=== PATIENT | female | born 1985 | race Caucasian/White ===

== ENCOUNTER 2018-10-19 17:05 | Emergency (ER) | payer BC ==
--- NOTE | 2018-10-19 18:19 | EDM.PDOC ---
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 She states her last mesh a period was September 03, 2018 and did have 2 positive home test. She states all using the bathroom she noted some blood in her underwear and had a moderate amount of blood in the toilet, saw large clot that appeared to "have tissue". She has decreased on the amount of bleedin, presented to the emergency room as she is concerned of miscarriage. She denies any fever, chills, chest pain, shortness of breath or cough. Denies any abdominal pain, nausea, vomiting, diarrhea, constipation or dysuria. She has been eating and drinking appropriately. , P:0. She does have a follow-up appointment with Luciana Huitron for her initial OB appointment later this month. Review of systems: As per history of present illness and below otherwise all systems reviewed and negative. Past medical history: As per history of present illness and as reviewed below otherwise noncontributory. Surgical history: As per history of present illness and as reviewed below otherwise noncontributory. Social history: See social history for further information Family history: As per history of present illness and as reviewed below otherwise noncontributory. Physical exam: General: Well-developed and well-nourished 33-year-old female. Alert and oriented. Nontoxic appearing and in no acute distress. HEENT: Atraumatic, normocephalic, pupils equal and reactive bilaterally, negative for conjunctival pallor or scleral icterus, mucous membranes moist, TMs normal bilaterally, throat clear, neck supple, nontender, trachea midline. No drooling or trismus noted. No meningeal signs. No hot potato voice noted. Lungs: Clear to auscultation, breath sounds equal bilaterally, chest nontender. Heart: S1S2, regular rate and rhythm without overt murmur Abdomen: Soft, nondistended, nontender. Negative for masses or hepatosplenomegaly. Negative for costovertebral tenderness. Pelvis: Stable nontender. Genitourinary: This was done with a manager fast food at the bedside and consented the patient. She does have moderate amount of blood in the vaginal canal, cervical os is closed no tenderness with speculum insertion. No adnexal masses noted. Rectal: Deferred. Skin: Intact, warm, dry. No lesions or rashes noted. Extremities: Atraumatic, negative for cords or calf pain. Neurovascular unremarkable. Neuro: Awake, alert, oriented. Cranial nerves II through XII unremarkable. Cerebellum unremarkable. Motor and sensory unremarkable throughout. Exam nonfocal. Notes: Ultrasound shows no findings for intrauterine . There is no intrauterine gestational sac present. Pelvic exam revealed that she did have a moderate amount of blood in the vaginal canal, cervical os is closed. Patient tolerated well. Likely patient had miscarriage while at home and she stated states she had a large tissue like clot that she saw in the toilet. Quantitative hCG is 433. Lab work is unremarkable with the exception that she does have a urinary tract infection. This information was shared with the patient. I will order for repeat quantitative hCG with these results going to Luciana Huitron. I do want her to follow up with her on Sunday as I do suspect a miscarriage. Diagnostics: CBC, CMP, AB/SHANNA, UA, urine , quantitative hCG, Transvaginal US Therapeutics: None Prescription: Macrobid Impression: UTI Threatened Miscarriage Plan: 1. Pelvic rest until cleared by the LOCKSTITCH SLEEVE SETTER. Please avoid tampons, sex, etc... 2. Please follow-up with Luciana Yanez on Sunday. Repeat your quantitative hCG any time on Sunday. 3. Tylenol and/or ibuprofen as needed for pain management. 4. Return to the ED as needed and as discussed. Definitive disposition and diagnosis as appropriate pending reevaluation and review of above. 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 ED EXAM - Physical Exam Exam: See Below (See dictation) Course - Vital Signs Last Recorded V/S: Last Vital Signs Temp 98.1 F 10/19/18 17:48 Pulse 81 10/19/18 17:48 Resp 18 10/19/18 17:48 BP 121/71 10/19/18 17:48 Pulse Ox 99 10/19/18 17:48 - Orders/Labs/Meds Orders: Active Orders 24 hr Category Date Time Status CULTURE URINE [RM] Stat Lab 10/19/18 18:14 Received Labs: Laboratory Tests 10/19/18 10/19/18 10/19/18 Range/Units 18:10 18:10 18:10 WBC 7.91 (4.0-11.0) K/uL RBC 4.38 (4.30-5.90) M/uL Hgb 13.5 (12.0-16.0) g/dL Hct 38.7 (36.0-46.0) % MCV 88.4 (80.0-98.0) fL MCH 30.8 (27.0-32.0) pg MCHC 34.9 (31.0-37.0) g/dL RDW Std Deviation 41.3 (28.0-62.0) fl RDW Coeff of Jenny 13 (11.0-15.0) % Plt Count 268 (150-400) K/uL MPV 11.10 (7.40-12.00) fL Neut % (Auto) 67.6 (48.0-80.0) % Lymph % (Auto) 25.9 (16.0-40.0) % [place] % (Auto) 5.8 (0.0-15.0) % Eos % (Auto) 0.4 (0.0-7.0) % Baso % (Auto) 0.3 (0.0-1.5) % Neut # (Auto) 5.4 (1.4-5.7) K/uL Lymph # (Auto) 2.1 (0.6-2.4) K/uL [place] # (Auto) 0.5 (0.0-0.8) K/uL Eos # (Auto) 0.0 (0.0-0.7) K/uL Baso # (Auto) 0.0 (0.0-0.1) K/uL Nucleated RBC % 0.0 /100WBC Nucleated RBCs # 0 K/uL Sodium 141 (136-145) mmol/L Potassium 4.1 (3.5-5.1) mmol/L Chloride 106 (98-107) mmol/L Carbon Dioxide 25.5 (21.0-32.0) mmol/L BUN 14 (7.0-18.0) mg/dL Creatinine 0.6 (0.6-1.0) mg/dL Est Cr Clr Drug Dosing 121.13 mL/min Estimated GFR (MDRD) > 60.0 ml/min Glucose 103 (74-106) mg/dL Calcium 9.7 (8.5-10.1) mg/dL Total Bilirubin 0.3 (0.2-1.0) mg/dL AST 8 L (15-37) IU/L ALT 9 L (14-63) IU/L Alkaline Phosphatase 44 L (46-116) U/L Total Protein 8.3 H (6.4-8.2) g/dL Albumin 4.1 (3.4-5.0) g/dL Globulin 4.2 H (2.6-4.0) g/dL Albumin/Globulin Ratio 1.0 (0.9-1.6) HCG, Quant 433.0 mIU/mL Urine Color Urine Appearance Urine pH (5.0-8.0) Ur Specific Hastings (1.001-1.035) Urine Protein (NEGATIVE) mg/dL Urine Glucose (UA) (NEGATIVE) mg/dL Urine Ketones (NEGATIVE) mg/dL Urine Occult Blood (NEGATIVE) Urine Nitrite (NEGATIVE) Urine Bilirubin (NEGATIVE) Urine Urobilinogen (<2.0) EU/dL Ur Leukocyte Esterase (NEGATIVE) Urine RBC (0-2/HPF) Urine WBC (0-5/HPF) Ur Epithelial Cells (NONE-FEW) Urine Bacteria (NEGATIVE) Urine HCG, Qual (NEGATIVE) Blood Type A POSITIVE 10/19/18 10/19/18 Range/Units 18:14 18:14 WBC (4.0-11.0) K/uL RBC (4.30-5.90) M/uL Hgb (12.0-16.0) g/dL Hct (36.0-46.0) % MCV (80.0-98.0) fL MCH (27.0-32.0) pg MCHC (31.0-37.0) g/dL RDW Std Deviation (28.0-62.0) fl RDW Coeff of Jenny (11.0-15.0) % Plt Count (150-400) K/uL MPV (7.40-12.00) fL Neut % (Auto) (48.0-80.0) % Lymph % (Auto) (16.0-40.0) % [place] % (Auto) (0.0-15.0) % Eos % (Auto) (0.0-7.0) % Baso % (Auto) (0.0-1.5) % Neut # (Auto) (1.4-5.7) K/uL Lymph # (Auto) (0.6-2.4) K/uL [place] # (Auto) (0.0-0.8) K/uL Eos # (Auto) (0.0-0.7) K/uL Baso # (Auto) (0.0-0.1) K/uL Nucleated RBC % /100WBC Nucleated RBCs # K/uL Sodium (136-145) mmol/L Potassium (3.5-5.1) mmol/L Chloride (98-107) mmol/L Carbon Dioxide (21.0-32.0) mmol/L BUN (7.0-18.0) mg/dL Creatinine (0.6-1.0) mg/dL Est Cr Clr Drug Dosing mL/min Estimated GFR (MDRD) ml/min Glucose (74-106) mg/dL Calcium (8.5-10.1) mg/dL Total Bilirubin (0.2-1.0) mg/dL AST (15-37) IU/L ALT (14-63) IU/L Alkaline Phosphatase (46-116) U/L Total Protein (6.4-8.2) g/dL Albumin (3.4-5.0) g/dL Globulin (2.6-4.0) g/dL Albumin/Globulin Ratio (0.9-1.6) HCG, Quant mIU/mL Urine Color YELLOW Urine Appearance CLEAR Urine pH 8.0 (5.0-8.0) Ur Specific [place] 1.010 (1.001-1.035) Urine Protein NEGATIVE (NEGATIVE) mg/dL Urine Glucose (UA) NEGATIVE (NEGATIVE) mg/dL Urine Ketones NEGATIVE (NEGATIVE) mg/dL Urine Occult Blood MODERATE H (NEGATIVE) Urine Nitrite NEGATIVE (NEGATIVE) Urine Bilirubin NEGATIVE (NEGATIVE) Urine Urobilinogen 0.2 (<2.0) EU/dL Ur Leukocyte Esterase TRACE H (NEGATIVE) Urine RBC 0-4 (0-2/HPF) Urine WBC 2-4 (0-5/HPF) Ur Epithelial Cells MODERATE (NONE-FEW) Urine Bacteria 1+ H (NEGATIVE) Urine HCG, Qual POSITIVE (NEGATIVE) Blood Type Departure - Departure Time of Disposition: 19:28 Disposition: Home, Self-Care 01 Clinical Impression: Threatened Urinary tract infection Qualifiers: Urinary tract infection type: acute cystitis Hematuria presence: with hematuria Qualified Code(s): N30.01 - Acute cystitis with hematuria - Discharge Information Prescriptions: Nitrofurantoin Monohyd/M-Cryst [Macrobid 100 mg Capsule] 100 mg PO BID 7 Days # 14 capsule Instructions: Urinary Tract Infection, Adult, [id number], Threatened Miscarriage, [id number] Referrals: PCP,None [Primary Care Provider] - Forms: ED Department Discharge Additional Instructions: The following information is given to patients seen in the emergency department who are being discharged to home. This information is to outline your options for follow-up care. We provide all patients seen in our emergency department with a follow-up referral. The need for follow-up, as well as the timing and circumstances, are variable depending upon the specifics of your emergency department visit. If you don't have a primary care physician on staff, we will provide you with a referral. We always advise you to contact your personal physician following an emergency department visit to inform them of the circumstance of the visit and for follow-up with them and/or the need for any referrals to a consulting specialist. The emergency department will also refer you to a specialist when appropriate. This referral assures that you have the opportunity for follow-up care with a specialist. All of these measure are taken in an effort to provide you with optimal care, which includes your follow-up. Under all circumstances we always encourage you to contact your private physician who remains a resource for coordinating your care. When calling for follow-up care, please make the office aware that this follow-up is from your recent emergency room visit. If for any reason you are refused follow-up, please contact the [facility] Emergency Department at and asked to speak to the emergency department charge nurse. [facility] Primary Care: Women's [facility] [address] [place] [id number] [place] [address] 1. Pelvic rest until cleared by the LOCKSTITCH SLEEVE SETTER. Please avoid tampons, sex, etc... 2. Please follow-up with Luciana Yanez on Sunday. Repeat your quantitative hCG any time on Sunday. 3. Tylenol and/or ibuprofen as needed for pain management. 4. Return to the ED as needed and as discussed. - My Orders Last 24 Hours: My Active Orders 10/19/18 18:14 CULTURE URINE [RM] Stat - Assessment/Plan Last 24 Hours: My Active Orders 10/19/18 18:14 CULTURE URINE [RM] Stat
[2018-10-19 18:44] LABS: CHLORIDE,CL 106 mmol/L (98-107); SODIUM,NA 141 mmol/L (136-145)
--- NOTE | 2018-10-19 19:25 | US ---
CLINICAL HISTORY: History bleeding. Positive urinary test. TECHNIQUE: Real time, fernández scale images were acquired of the pelvis using a transabdominal and transvaginal approach. Color Doppler analysis was performed of the ovaries. FINDINGS: Uterus measures 8.6 x 4.2 x 5.4 cm. Thickened heterogeneous endometrium. Mobile hyperechoic material within the endometrium which may represent blood products. No intrauterine gestational sac or pole seen. 3 centimeter x 3 centimeter uterine fibroid. Ovaries appear unremarkable. No adnexal mass. Trace amount of free fluid. IMPRESSION: 1. No findings for intrauterine . No intrauterine gestational sac present. Thickened heterogeneous endometrium with mobile hyperechoic material which probably reflects blood products. Findings probably reflect SAB. Early intrauterine or ectopic not completely excluded. Recommend correlation with HCG levels and follow-up. Dictated by Diandra Saxena MD @ Oct 19 2018 7:20PM Signed by Dr. Diandra Saxena @ Oct 19 2018 7:24PM
== END 2018-10-19 19:54 | disposition home or self-care (01) ==
LOC: MW.ED 17:05
DX: O20.0 Threatened abortion (principal); O23.41 Unspecified infection of urinary tract in pregnancy, first trimester; Z3A.00 Weeks of gestation of pregnancy not specified
CPT/HCPCS: 36415; 76801; 76801-26; 80053; 81001; 81025; 84702; 85025; 86900; 86901; 87086; 99284-25

== ENCOUNTER 2020-12-18 15:56 | Emergency (ER) | payer BC ==
[2020-12-18] MEDS ORDERED: Sodium Chloride 0.9% 1,000 ML IV ONE (16:35)
--- NOTE | 2020-12-18 16:40 | EDM.PDOC ---
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 She states she is 16 weeks with confirmed intrauterine and follows with Dr. Lake at [facility]. Patient states that she has had normal care thus far without complications. Patient states that last night she began having what she describes as "menstrual cramping "sensations of her lower abdomen that is on both sides and radiates to her low back bilaterally. Patient denies any change in vaginal discharge or vaginal bleeding. Patient states that throughout the day, this has continued. Patient states that her lower abdomen will tighten when this happens and then release. Patient states she was concerned so came to the emergency room for further evaluation. Patient denies any trauma or pain or any other associated symptoms. Patient denies fever, chills, chest pain, shortness of breath, or cough. Denies headache, neck stiff ness, change in vision, syncope, or near syncope. Denies nausea, vomiting, abdominal pain, diarrhea, constipation, or dysuria. Has not noted any blood in urine or stool. Patient has been eating and drinking appropriately. Review of systems: As per history of present illness and below otherwise all systems reviewed and negative. Past medical history: As per history of present illness and as reviewed below otherwise noncontributory. Surgical history: As per history of present illness and as reviewed below otherwise noncontributory. Social history: See social history for further information Family history: As per history of present illness and as reviewed below otherwise noncontributory. Physical exam: General: Patient is alert, oriented, and in no acute distress. Patient sitting comfortably on exam table. Vital stable and reviewed by me. HEENT: Atraumatic, normocephalic, pupils equal and reactive bilaterally, negative for conjunctival pallor or scleral icterus, mucous membranes moist, TMs normal bilaterally, throat clear, neck supple, nontender, trachea midline. No drooling or trismus noted. No meningeal signs. No hot potato voice noted. Lungs: Clear to auscultation, breath sounds equal bilaterally, chest nontender. Heart: S1S2, regular rate and rhythm without overt murmur Abdomen: Soft, nondistended, nontender. Negative for masses or hepatosplenomegaly. Negative for costovertebral tenderness. Pelvis: Stable nontender. Genitourinary: [employer] at bedside Fátima Charles. External genitalia is grossly unremarkable. There is a small to moderate amount of white vaginal discharge in the vaginal vault. The cervical os is closed and the cervix is firm. Uterus is nontender. Rectal: Deferred. Skin: Intact, warm, dry. No lesions or rashes noted. Extremities: Atraumatic, negative for cords or calf pain. Neurovascular unremarkable. Neuro: Awake, alert, oriented. Cranial nerves II through XII unremarkable. Cerebellum unremarkable. Motor and sensory unremarkable throughout. Exam nonf ocal. Notes: On initial exam, patient is well-appearing and vitally stable. Negative for abdominal pain to palpation on exam and negative CVA tenderness. Cervical os is closed on exam. Patient does not have any vaginal bleeding. We will obtain basic lab work as well as get an ultrasound to look at the fetus as well as the remainder of her abdomen. Lab work is unremarkable. Ultrasound shows a single viable intrauterine . There are multiple uterine fibroids. Mild nonspecific prominence of the left renal collecting system. Several ureteral stone or other obstructing process is not definite but possible. Remainder of exam is normal. Due to the description of patients cramping feeling like "menstrual cramps" and bilateral pelvic pain; not one-sided pain and CVA tenderness is negative, and clear UR my suspicion for ureterolithiasis is low at this time. However discussed with patient that cannot clearly rule this out at this time. I did call and speak to the YARN BLEACHING MACHINE OPERATOR provider on-call, Dr. Montes, and thoroughly discussed patient's case. She would like patient to start magnesium oxide 2 to 400 mg daily with a max of 800 mg for cramping. Encourage courage hydration and daily bowel movements close follow-up with her YARN BLEACHING MACHINE OPERATOR provider. Strict return precautions thoroughly discussed with patient. Discussed importance for follow-up with her YARN BLEACHING MACHINE OPERATOR provider. Voices understanding and is agreeable to plan of care. Denies any further questions or concerns at this time. Diagnostics: UA, CBC, CMP, Lipase, 2nd gestation US, Abd complete US Therapeutics: NS Prescription: None Impression: Abdominal cramping in , 2nd trimester Plan: 1. Please start and/or continue to take your vitamin with folic acid once daily. 2. Pelvic rest until cleared by your OBGYN (no tampons, sex, etc...) 3. Tylenol as needed for pain management. This is safe to use in . 4. Follow up with your YARN BLEACHING MACHINE OPERATOR as discussed. Return to the ED as needed and as discussed. 5. Start Magnesium Oxide daily. Start with 200-400mg daily and can increase to 800mg daily for cramping. Definitive disposition and diagnosis as appropriate pending reevaluation and review of above. Lower Abdomen Pain Score (Numeric/FACES): 6 - Related Data Allergies Allergy/AdvReac Type Severity Reaction Status Date / Time No Known Allergies Allergy Verified 12/18/20 16:25 Home Meds: Home Meds . 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 ED EXAM, GENERAL - Physical Exam Exam: See Below (see dictation) Course - Vital Signs Last Recorded V/S: Last Vital Signs Temp 97.3 F 12/18/20 16:25 Pulse 84 12/18/20 16:25 Resp 18 12/18/20 16:25 BP 112/59 L 12/18/20 16:25 Pulse Ox 99 12/18/20 16:25 - Orders/Labs/Meds Labs: Laboratory Tests 12/18/20 12/18/20 12/18/20 Range/Units 16:27 16:49 16:49 WBC 9.95 (4.0-11.0) K/uL RBC 3.93 L (4.30-5.90) M/uL Hgb 11.9 L (12.0-16.0) g/dL Hct 35.4 L (36.0-46.0) % MCV 90.1 (80.0-98.0) fL MCH 30.3 (27.0-32.0) pg MCHC 33.6 (31.0-37.0) g/dL RDW Std Deviation 43.3 (28.0-62.0) fl RDW Coeff of Jenny 13 (11.0-15.0) % Plt Count 242 (150-400) K/uL MPV 11.10 (7.40-12.00) fL Neut % (Auto) 76.8 (48.0-80.0) % Lymph % (Auto) 17.2 (16.0-40.0) % [place] % (Auto) 5.0 (0.0-15.0) % Eos % (Auto) 0.8 (0.0-7.0) % Baso % (Auto) 0.2 (0.0-1.5) % Neut # (Auto) 7.6 H (1.4-5.7) K/uL Lymph # (Auto) 1.7 (0.6-2.4) K/uL [place] # (Auto) 0.5 (0.0-0.8) K/uL Eos # (Auto) 0.1 (0.0-0.7) K/uL Baso # (Auto) 0.0 (0.0-0.1) K/uL Nucleated RBC % 0.0 /100WBC Nucleated RBCs # 0 K/uL Sodium 137 (136-145) mmol/L Potassium 3.6 (3.5-5.1) mmol/L Chloride 105 (98-107) mmol/L Carbon Dioxide 22.0 (21.0-32.0) mmol/L BUN 6 L (7.0-18.0) mg/dL Creatinine 0.6 (0.6-1.0) mg/dL Est Cr Clr Drug Dosing 118.88 mL/min Estimated GFR (MDRD) > 60.0 ml/min Glucose 84 (74-106) mg/dL Calcium 8.5 (8.5-10.1) mg/dL Total Bilirubin 0.1 L (0.2-1.0) mg/dL AST 17 (15-37) IU/L ALT 25 (14-63) IU/L Alkaline Phosphatase 49 (46-116) U/L Total Protein 7.7 (6.4-8.2) g/dL Albumin 3.2 L (3.4-5.0) g/dL Globulin 4.5 H (2.6-4.0) g/dL Albumin/Globulin Ratio 0.7 L (0.9-1.6) Lipase 106 (73-393) U/L Urine Color YELLOW Urine Appearance CLEAR Urine pH 6.0 (5.0-8.0) Ur Specific [place] 1.020 (1.001-1.035) Urine Protein NEGATIVE (NEGATIVE) mg/dL Urine Glucose (UA) NEGATIVE (NEGATIVE) mg/dL Urine Ketones NEGATIVE (NEGATIVE) mg/dL Urine Occult Blood NEGATIVE (NEGATIVE) Urine Nitrite NEGATIVE (NEGATIVE) Urine Bilirubin NEGATIVE (NEGATIVE) Urine Urobilinogen 0.2 (<2.0) EU/dL Ur Leukocyte Esterase NEGATIVE (NEGATIVE) Meds: Medications Discontinued Medications Generic Name Dose Route Start Last Admin Trade Name Freq PRN Reason Stop Dose Admin Sodium Chloride 1,000 mls @ 999 mls/hr 12/18/20 16:35 12/18/20 16:50 Normal Saline IV 12/18/20 17:35 999 mls/hr BOLUS ONE Administration Departure - Departure Time of Disposition: 20:13 Disposition: Home, Self-Care 01 Clinical Impression: Abdominal cramping affecting - Discharge Information Instructions: Abdominal Pain During , [id number] Referrals: PCP,None [Primary Care Provider] - Forms: ED Department Discharge Additional Instructions: The following information is given to patients seen in the emergency department who are being discharged to home. This information is to outline your options for follow-up care. We provide all patients seen in our emergency department with a follow-up referral. The need for follow-up, as well as the timing and circumstances, are variable depending upon the specifics of your emergency department visit. If you don't have a primary care physician on staff, we will provide you with a referral. We always advise you to contact your personal physician following an emergency department visit to inform them of the circumstance of the visit and for follow-up with them and/or the need for any referrals to a consulting specialist. The emergency department will also refer you to a specialist when appropriate. This referral assures that you have the opportunity for follow-up care with a specialist. All of these measure are taken in an effort to provide you with optimal care, which includes your follow-up. Under all circumstances we always encourage you to contact your private physician who remains a resource for coordinating your care. When calling for follow-up care, please make the office aware that this follow-up is from your recent emergency room visit. If for any reason you are refused follow-up, please contact the [facility] Emergency Department at and asked to speak to the emergency department charge nurse. [facility] [address] [place] [id number] [facility] [address] [place] [id number] [facility] [address] [place] [address] 1. Please start and/or continue to take your vitamin with folic acid once daily. 2. Pelvic rest until cleared by your OBGYN (no tampons, sex, etc...) 3. Tylenol as needed for pain management. This is safe to use in . 4. Follow up with your YARN BLEACHING MACHINE OPERATOR as discussed. Return to the ED as needed and as discussed. 5. Start Magnesium Oxide daily. Start with 200-400mg daily and can increase to 800mg daily for cramping. Sepsis Event Note (ED) - Evaluation Sepsis Screening Result: No Definite Risk - Focused Exam Vital Signs: Vital Signs Temp Pulse Resp BP Pulse Ox 12/18/20 16:25 97.3 F 84 18 112/59 L 99
[2020-12-18 17:23] LABS: BLOOD UREA NITROGEN,BUN 6 mg/dL (7.0-18.0); CHLORIDE,CL 105 mmol/L (98-107); GLUCOSE RANDOM 84 mg/dL (74-106); LIPASE 106 U/L (73-393); POTASSIUM,K 3.6 mmol/L (3.5-5.1); SODIUM,NA 137 mmol/L (136-145)
--- NOTE | 2020-12-18 18:55 | US ---
INDICATION: Lower abdomen and pelvic pain. Eighteen weeks . TECHNIQUE: Ultrasound abdomen complete. Sonographic images of the entire abdomen were obtained using fernández-scale and color Doppler. COMPARISON: None. FINDINGS: Liver: Normal in size and echotexture. No masses. No intrahepatic biliary dilatation. Gallbladder: No stones or sludge. Normal wall thickness. No pericholecystic fluid. Common bile duct: 4 mm. Pancreas: Normal in size and appearance. Spleen: Normal in size and appearance. Kidneys: Both kidneys are normal in size. Normal echotexture and cortex. No masses or stones. Mild prominence of the left renal collecting system. Normal right renal collecting system. Vasculature: Proximal abdominal aorta and IVC are normal in caliber. IMPRESSION: Mild nonspecific prominence of the left renal collecting system. The presence of a ureteral stone or other obstructing process is not definite but possible. Remainder of the exam is normal. No other finding to explain pain. Dictated by Kevin Howard MD @ Dec 18 2020 6:49PM Signed by Dr. Kevin Howard @ Dec 18 2020 6:53PM
--- NOTE | 2020-12-18 18:59 | US ---
INDICATION: with lower abdomen and pelvic pain. TECHNIQUE: Ultrasound OB pelvis transabdominal. Real-time fernández-scale imaging of the fetus was performed as well as color Doppler and spectral Doppler analysis of the umbilical artery. COMPARISON: None. FINDINGS: Sonographic imaging demonstrates a single living intrauterine gestation. Fetus demonstrates a regular cardiac rate of 150 beats per minute. Fetus has a transverse orientation. The placenta lies anterior without evidence of placenta previa. Amniotic fluid volume appears normal. There are multiple uterine fibroids with the largest in the posterior uterus measuring 6 cm. IMPRESSION: 1.Single viable intrauterine . 2.Multiple uterine fibroids including a large fibroid measuring 6 cm. No other abnormality evident. No other finding to explain pain. Dictated by Kevin Howard MD @ Dec 18 2020 6:49PM Signed by Dr. Kevin Howard @ Dec 18 2020 6:57PM
== END 2020-12-18 20:30 | disposition home or self-care (01) ==
LOC: MW.ED 15:56
DX: O99.891 Other specified diseases and conditions complicating pregnancy (principal); R10.30 Lower abdominal pain, unspecified; Z3A.16 16 weeks gestation of pregnancy
CPT/HCPCS: 36415; 76700; 76805; 80053; 81003; 83690; 85025; 99284; J7030

== ENCOUNTER 2021-05-23 00:34 | Inpatient (IN) | payer BC ==
[2021-05-23] MEDS ORDERED: Carboprost Tromethamine 250 MCG/1 ML Amp IM PRN (00:53)
[2021-05-23] MEDS ORDERED: Butorphanol 1 MG/ML SDV IVPUSH PRN (00:53)
[2021-05-23] MEDS ORDERED: Methylergonovine 0.2 MG/1 ML Amp IM PRN (00:53)
[2021-05-23] MEDS ORDERED: Sodium Chloride 0.9% 10 ML SDV IV PRN (00:53)
[2021-05-23] MEDS ORDERED: Lidocaine 1% 50 ML MDV INJECT PRN (00:53)
[2021-05-23] MEDS ORDERED: Nalbuphine 10 MG/1 ML Vial IVPUSH PRN (00:53)
[2021-05-23] MEDS ORDERED: Water For Irrigation,Sterile 1,000 ML Container IRR PRN (00:53)
[2021-05-23] MEDS ORDERED: Sodium Chloride 0.9% 10 ML Syringe FLUSH PRN (00:53)
[2021-05-23] MEDS ORDERED: Sodium Chloride 0.9% 2.5 ML Syringe FLUSH PRN (00:53)
[2021-05-23] MEDS ORDERED: Lactated Ringers 1,000 ML IV SCH (01:00)
[2021-05-23] MEDS ORDERED: Oxytocin/0.9 % Sodium Chloride 30 UNIT/500 ML BAG IV SCH (01:00)
[2021-05-23] MEDS ORDERED: Morphine 2 MG/ML SYRINGE IVPUSH ONE (01:40)
[2021-05-23] MEDS ORDERED: Ibuprofen 800 MG Tab PO PRN (02:04)
[2021-05-23] MEDS ORDERED: Ibuprofen 400 MG Tab PO PRN (02:04)
[2021-05-23] MEDS ORDERED: Benzocaine/Menthol 20%-0.5% Spray 78 GM Cannister TOP PRN (02:04)
[2021-05-23] MEDS ORDERED: Lanolin 100% Cream 7 GM Tube TOP PRN (02:04)
[2021-05-23] MEDS ORDERED: oxyCODONE 5 MG Tab PO PRN (02:04)
[2021-05-23] MEDS ORDERED: Acetaminophen 500 MG Tab PO PRN ×2 (02:04)
[2021-05-23] MEDS ORDERED: Docusate Sodium 100 MG Cap PO PRN (02:04)
[2021-05-23] MEDS ORDERED: Bisacodyl 10 MG Supp RECTAL PRN (02:04)
--- NOTE | 2021-05-23 02:11 | PCM.LDHP ---
L&D History of Present Illness - General Date of Service: 05/23/21 Admit Problem/Dx: Patient Status Order with Admit Dx/Problem 05/23/21 00:35 Patient Status [ADT] Routine 05/23/21 02:04 Patient Status [ADT] Routine Admission Diagnosis/Problem Admission Diagnosis/Problem Source of Information: Patient History Limitations: Reports: No Limitations - History of Present Illness Introduction:: 35 year old female at 40w2d (EDC 05/23/2021 by LMP c/w 1st trimester US) presented to labor and delivery in spontaneous onset of labor. States contractions began to increase in frequency and intensity starting at 1900 last evening. Spontaneous rupture of membranes with large amount of clear fluid noted after patient was admitted to labor and delivery room. Upon initial cervical exam, she was noted to be completed dilated, 100% effaced and 0 station. Reported good movement. Denies vaginal bleeding. was uncomplicated except for lower uterine segment fibroid. Pain Score: 5 - Related Data Allergies/Adverse Reactions: Allergies Allergy/AdvReac Type Severity Reaction Status Date / Time No Known Allergies Allergy Verified 05/23/21 00:52 Home Medications: Home Meds . 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: - Infectious Disease History Infectious Disease History: Reports: None Social & Family History - Family History Family Medical History: No Pertinent Family History - Caffeine Use Caffeine Use: Reports: None H&P Review of Systems - Review of Systems: Review Of Systems: See Below General: Reports: No Symptoms HEENT: Reports: No Symptoms Pulmonary: Reports: No Symptoms Cardiovascular: Reports: No Symptoms Gastrointestinal: Reports: Abdominal Pain Genitourinary: Reports: No Symptoms Musculoskeletal: Reports: Back Pain Skin: Reports: No Symptoms Psychiatric: Reports: No Symptoms Neurological: Reports: No Symptoms Hematologic/Lymphatic: Reports: No Symptoms L&D Exam - Exam Exam: See Below - Vital Signs Weight: 180 lb - OB Specific Contraction Frequency (min): 2 Contraction Intensity: Strong Movement: Active Heart Tones: Present Heart Tones per Min: 130 Heart Rate (FHR) Variability: Moderate (6-25 bpm) Presentation: Vertex - Shields Score Shields Score Cervix Position: Anterior Shields Score Consistency: Soft Shields Score Effacement: >80% Shields Score Dilation: > 5 cm Shields Score Infant's Station: +1, +2 Shields Score Total: 13 - Exam General: Alert Lungs: Normal Respiratory Effort Cardiovascular: Regular Rate GI/Abdominal Exam: Soft Back Exam: Full Range of Motion Extremities: Normal Range of Motion, Non-Tender, No Pedal Edema Skin: Warm, Dry, Intact Psychiatric: Normal Mood - Patient Data Lab Results Last 24 hrs: Laboratory Results - last 24 hr 05/23/21 05/23/21 Range/Units 01:00 01:00 WBC 13.58 H (4.0-11.0) K/uL RBC 4.20 L (4.30-5.90) M/uL Hgb 12.7 (12.0-16.0) g/dL Hct 37.3 (36.0-46.0) % MCV 88.8 (80.0-98.0) fL MCH 30.2 (27.0-32.0) pg MCHC 34.0 (31.0-37.0) g/dL RDW Std Deviation 43.1 (28.0-62.0) fl RDW Coeff of Jenny 14 (11.0-15.0) % Plt Count 176 (150-400) K/uL MPV 12.40 H (7.40-12.00) fL Blood Type A POSITIVE Antibody Screen NEGATIVE Result Diagrams: 05/23/21 01:00 Problem List Initiated/Reviewed/Updated: Yes Orders Last 24hrs: Active Orders 24 hr Category Date Time Status Patient Status [ADT] Routine ADT 05/23/21 00:35 Active Patient Status [ADT] Routine ADT 05/23/21 02:04 Ordered Heart Tones [RC] CONTINUOUS Care 05/23/21 00:53 Active Non Stress Test [RC] PER UNIT ROUTINE Care 05/23/21 00:53 Active May Shower [RC] ASDIRECTED Care 05/23/21 00:53 Active May Shower [RC] ASDIRECTED Care 05/23/21 02:04 Ordered Notify Provider [RC] PRN Care 05/23/21 00:53 Active Up ad Shana [RC] ASDIRECTED Care 05/23/21 00:53 Active Up ad Shana [RC] ASDIRECTED Care 05/23/21 02:04 Ordered Vaginal Exam [RC] PRN Care 05/23/21 00:53 Active Vital Signs [RC] PER UNIT ROUTINE Care 05/23/21 00:53 Active Vital Signs [RC] PER UNIT ROUTINE Care 05/23/21 02:04 Ordered HEMOGLOBIN/HEMATOCRIT,HH [HEME] Timed Lab 05/24/21 05:11 Ordered RPR (SYPHILIS SERO) W/ RFLX [REF] Routine Lab 05/23/21 01:00 Received Acetaminophen [Tylenol Extra Strength] Med 05/23/21 02:04 Ordered 1,000 mg PO Q4H PRN Acetaminophen [Tylenol Extra Strength] Med 05/23/21 02:04 Ordered 500 mg PO Q4H PRN Benzocaine/Menthol [Dermoplast Pain Relief 20%-0.5% Med 05/23/21 02:04 Ordered [place]] 78 gm TOP ASDIRECTED PRN Butorphanol [Stadol] Med 05/23/21 00:53 Active 1 mg IVPUSH Q1H PRN Carboprost Tromethamine [Hemabate DS] Med 05/23/21 00:53 Active 250 mcg IM ASDIRECTED PRN Docusate Sodium [Colace] Med 05/23/21 02:04 Ordered 100 mg PO Q12H PRN Ibuprofen [Motrin] Med 05/23/21 02:04 Ordered 400 mg PO Q4H PRN Ibuprofen [Motrin] Med 05/23/21 02:04 Ordered 800 mg PO Q6H PRN Lactated Ringers [Ringers, Lactated] 1,000 ml Med 05/23/21 01:00 Active IV ASDIRECTED Lanolin [Lansinoh HPA] Med 05/23/21 02:04 Ordered See Dose Instructions TOP ASDIRECTED PRN Lidocaine 1% [Xylocaine 1%] Med 05/23/21 00:53 Active 50 ml INJECT ONETIME PRN Methylergonovine [Methergine] Med 05/23/21 00:53 Active 0.2 mg IM ASDIRECTED PRN Nalbuphine [Nubain] Med 05/23/21 00:53 Active 10 mg IVPUSH Q1H PRN Oxytocin/0.9 % Sodium Chloride [Oxytocin 30 Unit/500 ML Med 05/23/21 01:00 Active -NS] 30 unit in 500 ml IV TITRATE Sodium Chloride 0.9% [Normal Saline] Med 05/23/21 00:53 Active 10 ml IV ASDIRECTED PRN Sodium Chloride 0.9% [Saline Flush] Med 05/23/21 00:53 Active 10 ml FLUSH ASDIRECTED PRN Sodium Chloride 0.9% [Saline Flush] Med 05/23/21 00:53 Active 2.5 ml FLUSH ASDIRECTED PRN Water For Irrigation,Sterile [Sterile Water for Med 05/23/21 00:53 Active Irrigation] 1,000 ml IRR ASDIRECTED PRN bisacodyL [Dulcolax] Med 05/23/21 02:04 Ordered 10 mg RECTAL ONETIME PRN oxyCODONE Med 05/23/21 02:04 Ordered 5 mg PO Q2H PRN witch Meagan [Tucks] Med 05/23/21 02:04 Ordered 1 pad TOP ASDIRECTED PRN Assess Lochia [WOMSER] Per Unit Routine Oth 05/23/21 02:04 Ordered Assess Uterine Involution [WOMSER] Per Unit Routine Oth 05/23/21 02:04 Ordered Scalp Electrode [WOMSER] Per Unit Routine Oth 05/23/21 00:53 Ordered Peripheral IV Discontinue [OM.PC] Routine Oth 05/23/21 02:04 Ordered Peripheral IV Insertion Adult [OM.PC] Routine Oth 05/23/21 00:53 Ordered Resuscitation Status Routine Resus Stat 05/23/21 00:53 Ordered Medication Orders Acetaminophen (Acetaminophen 500 Mg Tab) 500 mg PO Q4H PRN PRN Reason: Pain (mild 1-3) Acetaminophen (Acetaminophen 500 Mg Tab) 1,000 mg PO Q4H PRN PRN Reason: Pain (mild 1-3) Benzocaine/Menthol (Benzocaine/Menthol 20%-0.5% [place] 78 Gm Cannister) 78 gm TOP ASDIRECTED PRN PRN Reason: Perineal Comfort Measure Bisacodyl (Bisacodyl 10 Mg Supp) 10 mg RECTAL ONETIME PRN PRN Reason: Constipation Butorphanol Tartrate (Butorphanol 1 Mg/Ml Sdv) 1 mg IVPUSH Q1H PRN PRN Reason: Pain (severe 7-10) Carboprost Tromethamine (Carboprost Tromethamine 250 Mcg/1 Ml Amp) 250 mcg IM ASDIRECTED PRN PRN Reason: Post Hemorrhage Docusate Sodium (Docusate Sodium 100 Mg Cap) 100 mg PO Q12H PRN PRN Reason: Constipation Emollient Ointment (Lanolin 100% Cream 7 Gm Tube) 0 gm TOP ASDIRECTED PRN PRN Reason: Sore Nipples Oxytocin/Sodium Chloride (Oxytocin 30 Unit/500 Ml-Ns) 30 unit in 500 mls @ 500 mls/hr IV TITRATE LASHONDA Lactated Ringer's (Ringers, Lactated) 1,000 mls @ 150 mls/hr IV ASDIRECTED LASHONDA Ibuprofen (Ibuprofen 400 Mg Tab) 400 mg PO Q4H PRN PRN Reason: Pain (mild 1-3) Ibuprofen (Ibuprofen 800 Mg Tab) 800 mg PO Q6H PRN PRN Reason: Pain (mild 1-3) Lidocaine HCl (Lidocaine 1% 50 Ml Mdv) 50 ml INJECT ONETIME PRN PRN Reason: Laceration repair Methylergonovine Maleate (Methylergonovine 0.2 Mg/1 Ml Amp) 0.2 mg IM ASDIRECTED PRN PRN Reason: Post Hemorrhage Nalbuphine HCl (Nalbuphine 10 Mg/1 Ml Vial) 10 mg IVPUSH Q1H PRN PRN Reason: Pain (severe 7-10) Oxycodone HCl (Oxycodone 5 Mg Tab) 5 mg PO Q2H PRN PRN Reason: Pain (severe 7-10) Sodium Chloride (Sodium Chloride 0.9% 10 Ml Syringe) 10 ml FLUSH ASDIRECTED PRN PRN Reason: Keep Vein Open Sodium Chloride (Sodium Chloride 0.9% 2.5 Ml Syringe) 2.5 ml FLUSH ASDIRECTED PRN PRN Reason: Keep Vein Open Sodium Chloride (Sodium Chloride 0.9% 10 Ml Sdv) 10 ml IV ASDIRECTED PRN PRN Reason: IV Use Sterile Water (Water For Irrigation,Sterile 1,000 Ml Container) 1,000 ml IRR ASDIRECTED PRN PRN Reason: delivery Witch Meagan (Witch Meagan Medicated Pads 40/Jar) 1 pad TOP ASDIRECTED PRN PRN Reason: comfort care Assessment/Plan Comment:: 35 year old female at 40w2d (EDC 05/23/2021 by LMP c/w 1st trimester US) in spontaneous labor * Admitted to labor and delivery * IV access was obtained along with lab work including COVID-19 nasal swab. * Rh positive, rubella immune, GBS negative * Spontaneous vaginal delivery occurred shortly after arrival to labor and delivery.
--- NOTE | 2021-05-23 02:19 | PCM.DEL ---
L & D Note - General Info Date of Service: 05/23/21 Mother's Due Date: 05/21/21 - Delivery Note Labor: Spontaneous Delivery Outcome: Livebirth Infant Delivery Method: Spontaneous Vaginal Delivery-Single Presentation: Right Occiput Anterior (BEE) Nuchal Cord: Present (x1), Reduced Anesthesia Type: Local (10cc) Anesthetic: Lidocaine (Xylocaine) 1% Plain Amniotic Fluid Description: Clear Laceration: Vaginal (left) Suture type: Vicryl Suture size: 2-0 Placenta: Intact, Spontaneous Cord: 3 Vessels Estimated Blood Loss: 400 Resuscitation Needed: No Gateway: Bulb Syringe, Stimulated, Warmed Score 1 min: 8 Score 5 min: 9 Delivery Comments (Free Text/Narrative):: [id number] - General Info Date of Service: 05/23/21 Admission Dx/Problem (Free Text): Patient Status Order with Admit Dx/Problem 05/23/21 00:35 Patient Status [ADT] Routine 05/23/21 02:04 Patient Status [ADT] Routine Admission Diagnosis/Problem Admission Diagnosis/Problem - Patient Data Weight - Most Recent: 180 lb Lab Results Last 24 Hours: Laboratory Results - last 24 hr 05/23/21 05/23/21 Range/Units 01:00 01:00 WBC 13.58 H (4.0-11.0) K/uL RBC 4.20 L (4.30-5.90) M/uL Hgb 12.7 (12.0-16.0) g/dL Hct 37.3 (36.0-46.0) % MCV 88.8 (80.0-98.0) fL MCH 30.2 (27.0-32.0) pg MCHC 34.0 (31.0-37.0) g/dL RDW Std Deviation 43.1 (28.0-62.0) fl RDW Coeff of Jenny 14 (11.0-15.0) % Plt Count 176 (150-400) K/uL MPV 12.40 H (7.40-12.00) fL Blood Type A POSITIVE Antibody Screen NEGATIVE Med Orders - Current: Current Medications Acetaminophen (Acetaminophen 500 Mg Tab) 500 mg PO Q4H PRN PRN Reason: Pain (mild 1-3) Acetaminophen (Acetaminophen 500 Mg Tab) 1,000 mg PO Q4H PRN PRN Reason: Pain (mild 1-3) Benzocaine/Menthol (Benzocaine/Menthol 20%-0.5% [place] 78 Gm Cannister) 78 gm TOP ASDIRECTED PRN PRN Reason: Perineal Comfort Measure Bisacodyl (Bisacodyl 10 Mg Supp) 10 mg RECTAL ONETIME PRN PRN Reason: Constipation Butorphanol Tartrate (Butorphanol 1 Mg/Ml Sdv) 1 mg IVPUSH Q1H PRN PRN Reason: Pain (severe 7-10) Carboprost Tromethamine (Carboprost Tromethamine 250 Mcg/1 Ml Amp) 250 mcg IM ASDIRECTED PRN PRN Reason: Post Hemorrhage Docusate Sodium (Docusate Sodium 100 Mg Cap) 100 mg PO Q12H PRN PRN Reason: Constipation Emollient Ointment (Lanolin 100% Cream 7 Gm Tube) 0 gm TOP ASDIRECTED PRN PRN Reason: Sore Nipples Oxytocin/Sodium Chloride (Oxytocin 30 Unit/500 Ml-Ns) 30 unit in 500 mls @ 500 mls/hr IV TITRATE LASHONDA Lactated Ringer's (Ringers, Lactated) 1,000 mls @ 150 mls/hr IV ASDIRECTED LASHONDA Ibuprofen (Ibuprofen 400 Mg Tab) 400 mg PO Q4H PRN PRN Reason: Pain (mild 1-3) Ibuprofen (Ibuprofen 800 Mg Tab) 800 mg PO Q6H PRN PRN Reason: Pain (mild 1-3) Lidocaine HCl (Lidocaine 1% 50 Ml Mdv) 50 ml INJECT ONETIME PRN PRN Reason: Laceration repair Methylergonovine Maleate (Methylergonovine 0.2 Mg/1 Ml Amp) 0.2 mg IM ASDIRECTED PRN PRN Reason: Post Hemorrhage Nalbuphine HCl (Nalbuphine 10 Mg/1 Ml Vial) 10 mg IVPUSH Q1H PRN PRN Reason: Pain (severe 7-10) Oxycodone HCl (Oxycodone 5 Mg Tab) 5 mg PO Q2H PRN PRN Reason: Pain (severe 7-10) Sodium Chloride (Sodium Chloride 0.9% 10 Ml Syringe) 10 ml FLUSH ASDIRECTED PRN PRN Reason: Keep Vein Open Sodium Chloride (Sodium Chloride 0.9% 2.5 Ml Syringe) 2.5 ml FLUSH ASDIRECTED PRN PRN Reason: Keep Vein Open Sodium Chloride (Sodium Chloride 0.9% 10 Ml Sdv) 10 ml IV ASDIRECTED PRN PRN Reason: IV Use Sterile Water (Water For Irrigation,Sterile 1,000 Ml Container) 1,000 ml IRR ASDIRECTED PRN PRN Reason: delivery Witch Meagan (Witch Meagan Medicated Pads 40/Jar) 1 pad TOP ASDIRECTED PRN PRN Reason: comfort care Discontinued Medications Morphine Sulfate (Morphine 2 Mg/Ml Syringe) 2 mg IVPUSH ONETIME ONE Stop: 05/23/21 01:41 Last Admin: 05/23/21 01:49 Dose: 2 mg Documented by: - Problem List Review Problem List Initiated/Reviewed/Updated: Yes - My Orders Last 24 Hours: My Active Orders 05/23/21 00:35 Patient Status [ADT] Routine 05/23/21 00:53 Heart Tones [RC] CONTINUOUS Non Stress Test [RC] PER UNIT ROUTINE May Shower [RC] ASDIRECTED Notify Provider [RC] PRN Up ad Shana [RC] ASDIRECTED Vaginal Exam [RC] PRN Vital Signs [RC] PER UNIT ROUTINE Butorphanol [Stadol] 1 mg IVPUSH Q1H PRN Carboprost Tromethamine [Hemabate DS] 250 mcg IM ASDIRECTED PRN Lidocaine 1% [Xylocaine 1%] 50 ml INJECT ONETIME PRN Methylergonovine [Methergine] 0.2 mg IM ASDIRECTED PRN Nalbuphine [Nubain] 10 mg IVPUSH Q1H PRN Sodium Chloride 0.9% [Normal Saline] 10 ml IV ASDIRECTED PRN Sodium Chloride 0.9% [Saline Flush] 10 ml FLUSH ASDIRECTED PRN Sodium Chloride 0.9% [Saline Flush] 2.5 ml FLUSH ASDIRECTED PRN Water For Irrigation,Sterile [Sterile Water for Irrigation] 1,000 ml IRR ASDIRECTED PRN Scalp Electrode [WOMSER] Per Unit Routine Peripheral IV Insertion Adult [OM.PC] Routine Resuscitation Status Routine 05/23/21 01:00 RPR (SYPHILIS SERO) W/ RFLX [REF] Routine Lactated Ringers [Ringers, Lactated] 1,000 ml IV ASDIRECTED Oxytocin/0.9 % Sodium Chloride [Oxytocin 30 Unit/500 ML-NS] 30 unit in 500 ml IV TITRATE 05/23/21 02:04 Patient Status [ADT] Routine May Shower [RC] ASDIRECTED Up ad Shana [RC] ASDIRECTED Vital Signs [RC] PER UNIT ROUTINE Acetaminophen [Tylenol Extra Strength] 1,000 mg PO Q4H PRN Acetaminophen [Tylenol Extra Strength] 500 mg PO Q4H PRN Benzocaine/Menthol [Dermoplast Pain Relief 20%-0.5% [place]] 78 gm TOP ASDIRECTED PRN Docusate Sodium [Colace] 100 mg PO Q12H PRN Ibuprofen [Motrin] 400 mg PO Q4H PRN Ibuprofen [Motrin] 800 mg PO Q6H PRN Lanolin [Lansinoh HPA] See Dose Instructions TOP ASDIRECTED PRN bisacodyL [Dulcolax] 10 mg RECTAL ONETIME PRN oxyCODONE 5 mg PO Q2H PRN witch Meagan [Tucks] 1 pad TOP ASDIRECTED PRN Assess Lochia [WOMSER] Per Unit Routine Assess Uterine Involution [WOMSER] Per Unit Routine Peripheral IV Discontinue [OM.PC] Routine 05/24/21 05:11 HEMOGLOBIN/HEMATOCRIT,HH [HEME] Timed - Assessment Assessment:: 35 year old G2 now P1011 female status post vaginal delivery - Plan Plan:: Routine cares * Rh positive, rubella immune, GBS negative * PO pain medications ordered PRN * Encourage ambulation and fluid intake when able * Regular diet as tolerated * Monitor bleeding, history of lower uterine segment fibroid * Plans to breastfeed, nursing assistance as needed Dispo: stable. Admit to floor and anticipate routine course.
--- NOTE | 2021-05-23 03:01 | OR ---
SURGEON: LINDA HOUGH MD DATE OF PROCEDURE: 05/23/2021 PREOPERATIVE DIAGNOSES: 1. Single intrauterine gestation at 40 weeks and 2 days. 2. Spontaneous onset of labor. 3. Spontaneous rupture of membranes. POSTOPERATIVE DIAGNOSES: 1. Single intrauterine gestation at 40 weeks and 2 days. 2. Spontaneous onset of labor. 3. Spontaneous rupture of membranes. PROCEDURE PERFORMED: 1. Normal spontaneous vaginal delivery. 2. Repair of left vaginal wall laceration. PRIMARY SURGEON: Linda Hough MD ANESTHESIA: Local anesthetic. FINDINGS: Viable female infant, scores of eight and nine. weight not yet available at this time. Left vaginal wall laceration. ESTIMATED BLOOD LOSS: 400 mL. 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 After patient was admitted to Labor and Delivery room, spontaneous rupture of membranes with large amount of clear fluid was then noted. Cervical exam was then performed. The patient was noted to be completely dilated, 100% effaced, and at 0 station. I was promptly notified of the patient's arrival and presented to Labor and Delivery shortly thereafter. DESCRIPTION OF PROCEDURE: Upon my arrival to the room, the patient's cervical exam was again performed, and head was noted to be at the +1 station with the patient having strong desire to push with contractions occurring every approximately 2 minutes. The patient was then placed in the dorsal lithotomy position and pushed with contractions for approximately 20 minutes with good descent. The head delivered in the occiput anterior position, restituted in ROT. A loose nuchal cord was noted x1 and reduced. Anterior shoulder was then delivered easily. Posterior shoulder and the remainder of the body was then delivered. The baby was then placed on the maternal abdomen and evaluated by awaiting nursing staff. The baby was pink, crying vigorously, and moving all extremities immediately after the delivery. After approximately 60 seconds, the umbilical cord was clamped and cut after it was no longer pulsating. Arterial, venous, and cord blood gases were then obtained. The placenta was then expressed intact. Examination of the perineum was then performed and a left vaginal wall laceration was noted. This was repaired in a running locked fashion with 2-0 Vicryl. Hemostasis was confirmed. Fundal massage was performed, and the patient's bleeding was light. She tolerated the procedure well. The patient and recovering in Labor and Delivery room at this time. KOFFI HICKMAN /[id number]
[2021-05-23] MEDS: Witch Hazel Medicated Pads 40/Jar TOP PRN (03:24)
[2021-05-24] MEDS: Witch Hazel Medicated Pads 40/Jar TOP PRN (07:04)
--- NOTE | 2021-05-24 08:21 | PCM.PNPP ---
- General Info Date of Service: 05/24/21 Subjective Update: Patient doing well. with some difficulty. Functional Status: Reports: Pain Controlled, Tolerating Diet, Ambulating, Urinating - Review of Systems General: Reports: No Symptoms HEENT: Reports: No Symptoms Pulmonary: Reports: No Symptoms Cardiovascular: Reports: No Symptoms Gastrointestinal: Reports: No Symptoms Genitourinary: Reports: No Symptoms Musculoskeletal: Reports: No Symptoms Skin: Reports: No Symptoms Neurological: Reports: No Symptoms Psychiatric: Reports: No Symptoms - Patient Data Vital Signs - Most Recent: Last Vital Signs Temp 36.5 C 05/24/21 07:26 Pulse 65 05/24/21 07:26 Resp 18 05/24/21 07:26 BP 105/68 05/24/21 07:26 Pulse Ox 98 05/24/21 07:26 Weight - Most Recent: 81.647 kg Lab Results - Last 24 Hours: Laboratory Results - last 24 hr 05/24/21 Range/Units 04:35 Hgb 9.9 L (12.0-16.0) g/dL Hct 29.3 L (36.0-46.0) % Med Orders - Current: Current Medications Acetaminophen (Acetaminophen 500 Mg Tab) 500 mg PO Q4H PRN PRN Reason: Pain (mild 1-3) Acetaminophen (Acetaminophen 500 Mg Tab) 1,000 mg PO Q4H PRN PRN Reason: Pain (mild 1-3) Benzocaine/Menthol (Benzocaine/Menthol 20%-0.5% [place] 78 Gm Cannister) 78 gm TOP ASDIRECTED PRN PRN Reason: Perineal Comfort Measure Last Admin: 05/23/21 03:25 Dose: 1 canister Documented by: Bisacodyl (Bisacodyl 10 Mg Supp) 10 mg RECTAL ONETIME PRN PRN Reason: Constipation Butorphanol Tartrate (Butorphanol 1 Mg/Ml Sdv) 1 mg IVPUSH Q1H PRN PRN Reason: Pain (severe 7-10) Carboprost Tromethamine (Carboprost Tromethamine 250 Mcg/1 Ml Amp) 250 mcg IM ASDIRECTED PRN PRN Reason: Post Hemorrhage Docusate Sodium (Docusate Sodium 100 Mg Cap) 100 mg PO Q12H PRN PRN Reason: Constipation Emollient Ointment (Lanolin 100% Cream 7 Gm Tube) 0 gm TOP ASDIRECTED PRN PRN Reason: Sore Nipples Last Admin: 05/23/21 18:10 Dose: 1 tube Documented by: Oxytocin/Sodium Chloride (Oxytocin 30 Unit/500 Ml-Ns) 30 unit in 500 mls @ 500 mls/hr IV TITRATE [facility] Last Admin: 05/23/21 01:35 Dose: 500 mls/hr Documented by: Lactated Ringer's (Ringers, Lactated) 1,000 mls @ 150 mls/hr IV ASDIRECTED [facility] Last Admin: 05/23/21 00:50 Dose: 150 mls/hr Documented by: Ibuprofen (Ibuprofen 400 Mg Tab) 400 mg PO Q4H PRN PRN Reason: Pain (mild 1-3) Ibuprofen (Ibuprofen 800 Mg Tab) 800 mg PO Q6H PRN PRN Reason: Pain (mild 1-3) Last Admin: 05/23/21 03:25 Dose: 800 mg Documented by: Lidocaine HCl (Lidocaine 1% 50 Ml Mdv) 50 ml INJECT ONETIME PRN PRN Reason: Laceration repair Methylergonovine Maleate (Methylergonovine 0.2 Mg/1 Ml Amp) 0.2 mg IM ASDIRECTED PRN PRN Reason: Post Hemorrhage Nalbuphine HCl (Nalbuphine 10 Mg/1 Ml Vial) 10 mg IVPUSH Q1H PRN PRN Reason: Pain (severe 7-10) Oxycodone HCl (Oxycodone 5 Mg Tab) 5 mg PO Q2H PRN PRN Reason: Pain (severe 7-10) Sodium Chloride (Sodium Chloride 0.9% 10 Ml Syringe) 10 ml FLUSH ASDIRECTED PRN PRN Reason: Keep Vein Open Sodium Chloride (Sodium Chloride 0.9% 2.5 Ml Syringe) 2.5 ml FLUSH ASDIRECTED PRN PRN Reason: Keep Vein Open Sodium Chloride (Sodium Chloride 0.9% 10 Ml Sdv) 10 ml IV ASDIRECTED PRN PRN Reason: IV Use Sterile Water (Water For Irrigation,Sterile 1,000 Ml Container) 1,000 ml IRR ASDIRECTED PRN PRN Reason: delivery Witch Meagan (Witch Meagan Medicated Pads 40/Jar) 1 pad TOP ASDIRECTED PRN PRN Reason: comfort care Last Admin: 05/24/21 07:04 Dose: 1 tub Documented by: Discontinued Medications Morphine Sulfate (Morphine 2 Mg/Ml Syringe) 2 mg IVPUSH ONETIME ONE Stop: 05/23/21 01:41 Last Admin: 05/23/21 01:49 Dose: 2 mg Documented by: - Interaction Disposition, : in Room with Family Interaction: Holding Infant Infant Feeding: Attempted ; Nursed Fair/Poor Support Person: - Recovery Exam Fundal Tone: Firm Fundal Level: At Umbilicus Fundal Placement: Midline Lochia Amount: Small Lochia Color: Rubra/Red Bladder Status: Voiding Urinary Elimination: Voided - Exam General: Alert, Oriented Neck: Supple Lungs: Normal Respiratory Effort GI/Abdominal Exam: Soft, Non-Tender, No Distention Extremities: Non-Tender, Pedal Edema (1+) Skin: Warm, Dry, Intact Neurological: No New Focal Deficit Psy/Mental Status: Alert, Normal Affect, Normal Mood - Problem List & Annotations (1) Vaginal delivery SNOMED Code(s): 905369298 Code(s): O80 - ENCOUNTER FOR FULL-TERM UNCOMPLICATED DELIVERY Status: Acute Current Visit: Yes - Problem List Review Problem List Initiated/Reviewed/Updated: Yes - Assessment Assessment:: 35 year old female s/p , PPD#1 - Plan Plan:: Continue routine care. Work with nursing staff on today. Patient desires discharge home later today, reviewed discharge precautions/instructions. All questions answered.
== END 2021-05-24 15:30 | disposition home or self-care (01) | DRG 560 ==
LOC: MW.OBCHECK 00:34 → MW.OB 00:34 → MW.OBCHECK 00:35 → MW.OB 00:35 → MW.OBCHECK 00:39 → OBSVTOIN 01:32 → MW.OB 07:29
PROVIDERS: ADMIT Obstetrics & Gynecology; ATTEND Obstetrics & Gynecology
PROC: 10E0XZZ Delivery of Products of Conception, External Approach (ICD-10-PCS; principal; 2021-05-23)
PROC: 10907ZC Drainage of Amniotic Fluid, Therapeutic from Products of Conception, Via Natural or Artificial Opening (ICD-10-PCS; 2021-05-23)
PROC: 0HQ9XZZ Repair Perineum Skin, External Approach (ICD-10-PCS; 2021-05-23)
DX: O48.0 Post-term pregnancy (principal); Z3A.40 40 weeks gestation of pregnancy; Z37.0 Single live birth; O34.13 Maternal care for benign tumor of corpus uteri, third trimester; O69.81X0 Labor and delivery complicated by cord around neck, without compression, not applicable or unspecified; O70.0 First degree perineal laceration during delivery; Z20.822 Contact with and (suspected) exposure to COVID-19
CPT/HCPCS: 36415; 51702; 59025; 59409; 85014; 85018; 85027; 86592; 86850; 86900; 86901; A9270-GY; J2270; J2590; J7120; U0002

== ENCOUNTER 2023-04-21 16:52 | Emergency (ER) | payer BC ==
[2023-04-21] MEDS ORDERED: Sodium Chloride 0.9% 1,000 ML IV ONE (18:19)
[2023-04-21] MEDS ORDERED: Ondansetron 4 MG/2 ML SDV IVPUSH ONE (18:40)
[2023-04-21 19:49] LABS: APPEARANCE,URINE SLT CLOUDY; BILIRUBIN,URINE NEGATIVE (NEGATIVE); COLOR,URINE YELLOW; GLUCOSE,URINE NEGATIVE (NEGATIVE); KETONES,URINE 40 mg/dL (NEGATIVE); LEUKOCYTE ESTERASE,URINE NEGATIVE (NEGATIVE); NITRITE,URINE NEGATIVE (NEGATIVE); OCCULT BLOOD,URINE SMALL (NEGATIVE); PROTEIN,URINE NEGATIVE (NEGATIVE); UROBILINOGEN,URINE 0.2 EU/dL (<2.0)
[2023-04-21 19:49] LABS: BASOPHILS PERCENT AUTO 0.1 % (0.0-1.5); HEMATOCRIT 39.8 % (36.0-46.0); HEMOGLOBIN 13.9 g/dL (12.0-16.0); LYMPHOCYTES ABSOLUTE AUTO 0.9 K/uL (0.6-2.4); LYMPHOCYTES PERCENT AUTO 9.9 % (16.0-40.0); MEAN CORPUSCULAR HEMOGLOBIN 30.2 pg (27.0-32.0); MEAN CORPUSCULAR HGB CONC 34.9 g/dL (31.0-37.0); MEAN CORPUSCULAR VOLUME 86.3 fL (80.0-98.0); MONOCYTES ABSOLUTE AUTO 0.5 K/uL (0.0-0.8); MONOCYTES PERCENT AUTO 5.3 % (0.0-15.0); NEUTROPHILS ABSOLUTE AUTO 7.4 K/uL (1.4-5.7); NEUTROPHILS PERCENT AUTO 84.7 % (48.0-80.0); NRBC ABSOLUTE 0 K/uL; PLATELET COUNT,PLT 298 K/uL (150-400); RED BLOOD CELL COUNT 4.61 M/uL (4.30-5.90)
[2023-04-21 20:05] LABS: BACTERIA,URINE 1+ (NEGATIVE); EPITHELIAL CELLS,URINE MODERATE (NONE-FEW); MUCUS,URINE HEAVY (NONE-MOD)
[2023-04-21] MEDS ORDERED: Cephalexin 500 MG Cap PO ONE (20:38)
[2023-04-21 20:40] LABS: A/G RATIO 0.7 (0.9-1.6); ALBUMIN 3.4 g/dL (3.4-5.0); BILIRUBIN TOTAL 0.6 mg/dL (0.2-1.0); CALCIUM 8.4 mg/dL (8.5-10.1); CARBON DIOXIDE,CO2 19.9 mmol/L (21.0-32.0); CREATININE 0.9 mg/dL (0.6-1.0); EST CRCL DRUG DOSING (CG) 77.76 mL/min; PROTEIN TOTAL,TP 8.4 g/dL (6.4-8.2)
[2023-04-21] MEDS ORDERED: Potassium Chloride 20 MEQ Tab.ER PO ONE (20:51)
[2023-04-21] MEDS ORDERED: Loperamide 2 MG Cap PO ONE (20:52)
[2023-04-21] MEDS ORDERED: Sodium Chloride 0.9% 500 ML IV ONE (21:00)
[2023-04-21] MEDS ORDERED: Sodium Chloride 0.9% 500 ML IV SCH (21:00)
== END 2023-04-21 21:38 | disposition home or self-care (01) ==
LOC: MW.ED 16:52
DX: O23.41 Unspecified infection of urinary tract in pregnancy, first trimester (principal); O99.281 Endocrine, nutritional and metabolic diseases complicating pregnancy, first trimester; E87.6 Hypokalemia; Z20.822 Contact with and (suspected) exposure to COVID-19; Z79.899 Other long term (current) drug therapy; Z3A.09 9 weeks gestation of pregnancy
CPT/HCPCS: 36415; 80053; 81001; 83690; 84702; 85025; 87045; 87046; 87324; 87328; 87329; 87449; 87635; 87899; 96361; 96374; 99284; A9270; J2405; J7030; J7040; U0002